=== PATIENT | female | born 1985 | race Two or more races ===

== ENCOUNTER 2016-11-15 11:47 | Emergency (ER) | payer MEDICAID ==
[2016-11-15 12:24] VITALS: BP 139/82; PULSE 78; RESP 18; TEMP 98; O2SAT 97
--- NOTE | 2016-11-15 13:11 | UCPHY ---
H & P Time Seen by Provider: 11/15/16 13:02 Patient Type: New HPI/ROS: This patient reports feeling very anxious. She attributes this to being near the anniversary of her mother's 7 years ago. She has also had difficulty sleeping over the past 3 nights citing frequent awakening after falling asleep as the primary problem. She during these episodes of anxiety feels that she has difficulty breathing and feels tingling in her extremities. ROS: She is has no fevers or chills. No other constitutional symptoms. HEENT: No headache or other complaints pulmonary: No complaints psychiatric: No homicidal or suicidal ideation. 7 point ROS is otherwise negative. Past Medical/Surgical History: Previous history of IV drug abuse clean since January. 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 General: No acute distress Eyes: Pupils equal and react to light. Extraocular motions are intact. Lungs: No respiratory distress. Cardiac: Brisk capillary refill is intact throughout. Skin: No rash or pallor. Psychiatric: Mildly anxious but maintains logical thought content. No racing speech pressured speech. Neuro: Alert and oriented x3 with no sensorimotor deficits. Initial differential diagnosis: Insomnia, anxiety, drug-seeking Constitutional: Initial Vital Signs Temperature (C) 36.6 C 11/15/16 12:19 Heart Rate 78 11/15/16 12:19 Respiratory Rate 18 11/15/16 12:19 Blood Pressure 139/82 H 11/15/16 12:19 O2 Sat (%) 97 11/15/16 12:19 O2 Delivery Mode Room Air Allergies/Adverse Reactions: No Known Allergies Allergy (Unverified 11/15/16 12:19) Home Medications: Medication Instructions Recorded Coumadin 11/15/16 Propranolol HCl [Inderal 10mg (*)] 10 - 20 mg PO BID PRN #20 tab 11/15/16 Zaleplon [Sonata] 10 mg PO HS PRN #15 capsule 11/15/16 MDM/Departure - [facility] ED Course/Re-evaluation: I counseled the patient regarding anxiety insomnia. Will try sonata and propranolol. I counseled against using benzos or other medications given history of former IV drug abuse. - Depart Disposition: Home, Routine, Self-Care Clinical Impression: Anxiety, Insomnia Condition: Good Instructions: Insomnia (ED), Anxiety (ED) Additional Instructions: Diagnosis: 1. Anxiety 2. Insomnia Plan: Daily exercise 20 minutes or more day Daily relaxation 20 minutes or more day. Sonata for sleep if needed Propranolol if needed for anxiety Follow up with [facility] if he have any ongoing symptoms Go to the emergency department for any significant worsening despite the treatment plan. Prescriptions: Propranolol HCl [Inderal 10mg (*)] 10 - 20 mg PO BID PRN #20 tab PRN Reason: Anxiety Zaleplon [Sonata] 10 mg PO HS PRN #15 capsule PRN Reason: insomnia Referrals: NONE *PRIMARY CARE P,. [Primary Care Provider] - As per Instructions - PQRS PQRS Measurement: NA
== END 2016-11-15 13:15 | disposition home or self-care (01) ==
LOC: CED 11:47
DX: F41.9 Anxiety disorder, unspecified (principal); G47.00 Insomnia, unspecified
CPT/HCPCS: G0463-PO

== ENCOUNTER → 2017-02-22 | Outpatient (CLI) | payer MEDICAID | LOC: CIMAGING 12:17 | PROVIDERS: ATTEND Family Medicine | DX: M79.672 Pain in left foot (principal); F31.9 Bipolar disorder, unspecified | CPT/HCPCS: 73620-PO ==

== ENCOUNTER → 2017-06-04 | Outpatient (CLI) | payer MEDICAID | LOC: CIMAGING 10:30 | PROVIDERS: ATTEND Family Medicine | DX: K76.0 Fatty (change of) liver, not elsewhere classified (principal) | CPT/HCPCS: 76705-PO ==

== ENCOUNTER 2017-07-20 14:42 | Emergency (ER) | payer MEDICAID ==
[2017-07-20 15:00] VITALS: BP 123/89; PULSE 75; RESP 16; TEMP 98.1; O2SAT 97
--- NOTE | 2017-07-20 15:36 | EDPHY ---
H & P Time Seen by Provider: 07/20/17 15:22 HPI/ROS: CHIEF COMPLAINT: Left foot pain HISTORY OF PRESENT ILLNESS: Patient is a 32-year-old female with a complicated past medical history including meth use with subsequent endocarditis and sepsis and heart valve replacement. She states that since she woke up from her coma she has had left foot pain. This is been present for over a year. I initially had hurt on the ball of her foot. She has now had burning pain over the top of her foot. This extends up to her ankle. She denies any redness or swelling. No fevers or chills. No numbness. Patient denies meth use at this time. Patient states that she had an x-ray by her primary care physician for her foot pain and it was read as negative. The patient is currently on Lyrica. This is prescribed for right arm pain and burning since her coma. Patient has had no chest pain or shortness of breath. No nausea or vomiting. REVIEW OF SYSTEMS: My complete review of systems is negative except as mentioned in the HPI. Past Medical/Surgical History: Includes sepsis, endocarditis, PTSD, ovarian cyst Past surgical history: Includes heart valve replacement Social history: The patient uses THC. She denies alcohol use. Smoking Status: Current every day smoker Physical Exam: 36.7, 123/89, 75, 16, 97% on room air GENERAL: Well-appearing, in no acute distress, alert. HEENT: Eyes normal to inspection, normal pharynx, no signs of dehydration. NECK: No thyromegaly, no lymphadenopathy, supple. RESPIRATORY: Clear to auscultation bilaterally, no rales, rhonchi or wheezing. CVS: Regular rate and rhythm, no rubs, or gallops. Valve click. ABDOMEN: Soft, nontender, nondistended, no organomegaly. BACK: Normal to inspection, no CVA tenderness. SKIN: Normal color, no rash, warm, dry. No pallor. EXTREMITIES: No pedal edema, no calf tenderness, no Homans sign or cords, no joint swelling. Patient's left foot appears normal. There is no discoloration or swelling. No individual lesions. On soft touch the skin the patient has her burning sensation replicated. No palpable mass. Brisk capillary refill. NEURO/PSYCH: Alert and oriented x3, normal mood and affect, normal motor sensory exam. Constitutional: Initial Vital Signs Temperature (C) 36.7 C 07/20/17 14:44 Heart Rate 75 07/20/17 14:44 Respiratory Rate 16 07/20/17 14:44 Blood Pressure 123/89 H 07/20/17 14:44 O2 Sat (%) 97 07/20/17 14:44 O2 Delivery Mode Room Air Allergies/Adverse Reactions: Penicillins Allergy (Verified 07/20/17 15:00) Pt states she had rxn as child Home Medications: Medication Instructions Recorded Coumadin 11/15/16 Hydrocodone/APAP 5/325 [[place] 1 - 2 tab PO Q4 #7 tab 07/20/17 5/325 (RX)] Lyrica 07/20/17 Vistaril 07/20/17 Medical Decision Making ED Course/Re-evaluation: In the emergency department I discussed possible etiologies with the patient. I answered all her questions. I reviewed the patient's foot x-ray from 2016. It was negative. I do not feel she needs a repeat x-ray. I see no signs of infection or abscess. There is no visible signs of gout. The patient will be given a prescription of Vicodin 7. She will follow up with the primary care physician. She was informed that she would not receive a refill from the emergency department. Differential Diagnosis: My differential includes but is not limited to neuropathy, gout, cellulitis, abscess, fracture, dislocation, bacteremia, sepsis Departure - Departure Disposition: Home, Routine, Self-Care Clinical Impression: Foot pain, left Condition: Good Instructions: Arthralgia (ED) Additional Instructions: Return with increasing redness, swelling, fever, or any other concerns. You need close follow-up with your primary care physician. Referrals: Ginny Giron DO [Primary Care Provider] - 3-4 days, if not improved Prescriptions: Hydrocodone/APAP 5/325 [[place] 5/325 (RX)] 1 - 2 tab PO Q4 #7 tab
== END 2017-07-20 15:40 | disposition home or self-care (01) ==
LOC: CED 14:42
DX: M79.671 Pain in right foot (principal); F17.200 Nicotine dependence, unspecified, uncomplicated

== ENCOUNTER → 2017-09-16 | Outpatient (CLI) | payer MEDICAID | LOC: CLAB 11:33 → EDSTATUS 11:35 → CIMAGING 11:36 | PROVIDERS: ATTEND Family Medicine | DX: R10.2 Pelvic and perineal pain (principal) | CPT/HCPCS: 73502-PO ==

== ENCOUNTER 2017-10-07 15:55 | Emergency (ER) | payer MEDICAID ==
[2017-10-07 16:06] VITALS: BP 143/86; PULSE 70; RESP 18; TEMP 98.2; O2SAT 94
--- NOTE | 2017-10-07 16:18 | EDPHY ---
HPI/HX/ROS/PE/MDM Narrative: CHIEF COMPLAINT:Left ankle pain HPI: The patient is a 32-year-old female with a complex PMH significant for meth use complicated by sepsis and coma. She was seen in the ED approximately two months ago for pain in the left foot and ankle with a negative workup, and was prescribed [place] by the ED doc. She states she has been fine until 30 minutes prior to arrival when she got out of the passenger side of a car, and the motion of getting out of the car caused pain to her left ankle. Pain was worse with weightbearing but she was able to walk into the ED and to the exam room. She denies other trauma. No fever, numbness. No calf pain. REVIEW OF SYSTEMS: Aside from elements discussed in the HPI, a comprehensive 10-point review of systems was reviewed and is negative. PMH:See prior chart. Includes meth use and sepsis. SOCIAL HISTORY: History of prior drug use. Denies current. PHYSICAL EXAM: General:Patient is alert, in no acute distress. Skin: Normal color. No rash. Warm and dry. Extremities: LLE: No erythema, redness or warmth. No rash. TTP is present lateral malleolus. Calf NTTP. No lesions. Normal distal cap refill. Achilles intact with normal Df/PF. Neuro: Oriented x3. Normal motor function. Normal sensory function. ED Course: XR ankle: read as positive for mild effusion but no fx or FB. Ankle stirrup splint applied. MDM: This patient presents with acute onset of left ankle pain after getting out of a car. Her exam is unremarkable and x-rays negative for fracture. Her presentation seems most consistent with an ankle sprain or other soft tissue injury. There is no evidence of Achilles injury on exam. Her workup is made somewhat more complicated by the fact that she has a history of IV drug abuse, valve replacement secondary to endocarditis and Coumadin use. This raises the possibility of possible septic arthritis or hemarthrosis. The patient adamantly denies any fever and the joint is not particularly swollen or hot. She is afebrile here. I do not think septic arthritis is likely given the acute onset of symptoms immediately following a particular motion of the ankle. I did discuss this with her as well as the fact that we would need to perform blood work and/or an arthrocentesis to exclude this possibility. The patient feels comfortable with plan for a splint and discharged home. She states she already has a referral to orthopedic surgeon that she is in the process of following up on. We discussed strict return precautions, particularly the need for return should she develop fever, worsening swelling or pain. Of note, I was initially somewhat suspicious that the patient might be drug seeking given her history of IV drug abuse and [place] however, the patient did not request any pain medicine during the course of our interaction, and was quite pleasant. - Data Points Imaging Results: Imaging Impressions Ankle X-Ray 10/07/17 16:16 Impression: No evidence for acute osseous abnormality of left ankle. Imaging: Discussed imaging studies w/ scalloper Radiologist, I viewed and interpreted images myself General Time Seen by Provider: 10/07/17 16:04 Initial Vital Signs: Initial Vital Signs Temperature (C) 36.8 C 10/07/17 16:01 Heart Rate 70 10/07/17 16:01 Respiratory Rate 18 10/07/17 16:01 Blood Pressure 143/86 H 10/07/17 16:01 O2 Sat (%) 94 10/07/17 16:01 O2 Delivery Mode Room Air Allergies/Adverse Reactions: Penicillins Allergy (Verified 10/07/17 16:05) Pt states she had rxn as child Home Medications: Medication Instructions Recorded Coumadin 11/15/16 Lyrica 07/20/17 Vistaril 07/20/17 Departure - Departure Disposition: Home, Routine, Self-Care Clinical Impression: Ankle pain, left Condition: Good Instructions: Ankle Sprain (ED) Additional Instructions: Rest, ice, elevation. Follow up with an orthopedic surgeon within one week if pain persists. Return to the emergency department for worsening pain, swelling , numbness, weakness or other concerns. Wear splint for comfort, weight bear as tolerated. Referrals: Ginny Giron DO [Primary Care Provider] - As per Instructions Chris Rosales MD [Medical Doctor] - As per Instructions Stand Alone Forms: Work Excuse
== END 2017-10-07 17:00 | disposition home or self-care (01) ==
LOC: CED 15:55
DX: M25.572 Pain in left ankle and joints of left foot (principal)
CPT/HCPCS: 73610-PO

== ENCOUNTER 2018-04-28 12:50 | Emergency (ER) | payer SELFPAY ==
[2018-04-28 13:03] VITALS: BP 115/87
[2018-04-28] MEDS ORDERED: ACETAMINOPHEN 500 MG TAB PO ONE (13:25)
--- NOTE | 2018-04-28 13:51 | EDPHY ---
H & P Time Seen by Provider: 04/28/18 13:09 HPI/ROS: This patient complains of right lateral ankle pain starting last night around 10 30. She admits that she was more active than usual carrying loads of laundry up and down stairs and climbing up and down from by cheer a to the floor and back to load some items on a shelf but does not recall any acute injury. She states that the pain is right lateral ankle and moderate intensity currently 4/ 10. The pain worsens with walking and no other exacerbating factors are noted. She has not taken any medications today for her pain. She does have a history of right ankle sprain last year. ROS: Constitutional: No fevers Neuro: No numbness or tingling Cardiovascular: No discoloration the affected lower extremity 5 point review of symptoms is performed and otherwise negative except as noted Past Medical/Surgical History: Prior right ankle sprain Former IV drug abuser with no IV drug use in the past 3 years per patient Smoking Status: Heavy smoker Physical Exam: Physical Exam Vital signs are normal. General: No acute distress Lungs: No respiratory distress. Cardiac: Brisk capillary refill is intact throughout. Pulses are 2+ and symmetric in the affected extremity. Skin: No rash or pallor. Extremities: Atraumatic normal except for right ankle Right ankle: Patient has tenderness and mild swelling to the lateral malleolus as well as inferior to the lateral malleolus. Anterior drawer is negative for laxity. She has no medial ankle tenderness no foot swelling or tenderness. No Achilles swelling or tenderness Neuro: Alert and oriented x3 with no sensorimotor deficits. Initial differential diagnosis: Ankle sprain, strain, fracture Constitutional: Initial Vital Signs Temperature (C) 36.6 C 04/28/18 12:58 Heart Rate 68 04/28/18 12:58 Respiratory Rate 16 04/28/18 12:58 Blood Pressure 115/87 H 04/28/18 12:58 O2 Sat (%) 99 04/28/18 12:58 O2 Delivery Mode Room Air Allergies/Adverse Reactions: morphine Allergy (Verified 04/28/18 12:57) Penicillins Allergy (Verified 04/28/18 12:57) Pt states she had rxn as child Home Medications: Medication Instructions Recorded Coumadin 11/15/16 MDM/Departure - MDM Imaging Results: Imaging Impressions Ankle X-Ray 04/28/18 13:24 Impression: Negative right ankle series. Ankle ears: Normal by my interpretation Medications Given: Discontinued Medications Acetaminophen (Tylenol) 1,000 mg PO EDNOW ONE Stop: 04/28/18 13:26 Last Admin: 04/28/18 13:34 Dose: 1,000 mg ED Course/Re-evaluation: Patient placed in Jonny wrap and a Velcro stirrup splint by our tech. Patient neurovascular intact post splint application Discussion: Patient with findings consistent with mild ankle sprain without significant mechanism perhaps exacerbation of prior injury. Counseled regarding this. No red flag findings today. Patient will follow up primary care physician for any ongoing symptoms with plan of ice, Tylenol and splinting. - Depart Disposition: Home, Routine, Self-Care Clinical Impression: Ankle pain Qualifiers: Chronicity: acute Laterality: right Qualified Code(s): M25.571 - Pain in right ankle and joints of right foot Condition: Good Instructions: Arthralgia (ED) Additional Instructions: Diagnosis: Right ankle pain Plan: Ice 20 min at a time to 3 times a day to the lateral ankle Jonny wrap and splint for comfort Cane or crutches if needed Tylenol for pain as needed Follow up with primary care physician for any ongoing symptoms Return for any significant worsening despite treatment plan Stand Alone Forms: Work Excuse Referrals: Ginny Giron, DO [Primary Care Provider] - As per Instructions
== END 2018-04-28 13:56 | disposition home or self-care (01) ==
LOC: CED 12:50
DX: M25.571 Pain in right ankle and joints of right foot (principal)
CPT/HCPCS: 73610-PO; L4350